=== PATIENT | female | born 1965 | race American Indian/Alaskan Native ===

== ENCOUNTER 2022-06-20 15:18 | Emergency (ER) | payer MEDICAID ==
[~2022-06-20] VITALS: Ht 162.6 cm; Wt 136.4 kg
[2022-06-20 16:10] VITALS: BP 161/85
[2022-06-20] MEDS ORDERED: ORPH100T2 PO (17:36)
[2022-06-20] MEDS ORDERED: IBUP-1984 PO (17:36)
[2022-06-20] MEDS ORDERED: METH4TAB3 PO (17:36)
[2022-06-20] MEDS ORDERED: dexamethasone sod phosphate 10mg/ml inj PO STA (17:54)
[2022-06-20] MEDS ORDERED: cyclobenzaprine 10mg tablet PO ONE (17:55)
== END 2022-06-20 18:17 | disposition home or self-care (01) ==
LOC: ER 15:21
DX: M25.552 Pain in left hip (principal); M19.90 Unspecified osteoarthritis, unspecified site; Z79.899 Other long term (current) drug therapy
CPT/HCPCS: 73502; 99283; J1100

== ENCOUNTER 2023-10-24 10:38 | Day surgery (SDC) | payer MEDICAID, OTHER ==
[2023-10-20 10:01] LABS: BASOPHILS % (AUTO) 0.6 % (0-1); EOSINOPHILS # (AUTO) 0.4 X10'3 (0-0.9); EOSINOPHILS % (AUTO) 4.3 % (0-6); HEMATOCRIT 38.6 % (35.0-45.0); HEMOGLOBIN 12.7 g/dl (12.0-16.0); LYMPHOCYTES # (AUTO) 1.8 X10'3 (1.1-4.8); LYMPHOCYTES % (AUTO) 21.4 % (21-51); MEAN CORPUSCULAR HEMOGLOBIN 26.9 PG (27.0-31.0); MEAN CORPUSCULAR HGB CONC 32.8 g/dL (33.0-36.5); MEAN CORPUSCULAR VOLUME 81.9 FL (78-98); MEAN PLATELET VOLUME 8.8 FL (7.4-10.4); MONOCYTES # (AUTO) 0.6 X10'3 (0-0.9); MONOCYTES % (AUTO) 7.1 % (2-12); NEUTROPHILS # (AUTO) 5.5 X10'3 (1.8-7.7); NEUTROPHILS % (AUTO) 66.6 % (42-75); PLATELET COUNT 343 X10'3 (140-440); RED BLOOD COUNT 4.72 X10'6 (4.20-5.60); RED CELL DISTRIBUTION WIDTH 16.4 % (11.5-14.5); WHITE BLOOD COUNT 8.2 X10'3 (4.5-11.0)
[2023-10-20 10:09] LABS: ALBUMIN 3.2 G/DL (3.4-5.0); ANION GAP 11 (8-16); BLOOD UREA NITROGEN 22 MG/DL (7-18); CALCIUM 10.1 MG/DL (8.5-10.1); CHLORIDE 101 MMOL/L (99-107); CREATININE 1.05 MG/DL (0.40-0.90); GLUCOSE 96 MG/DL (70-104); POTASSIUM 3.9 MMOL/L (3.5-5.1); SODIUM 140 MMOL/L (135-145); TOTAL CARBON DIOXIDE 28.1 MMOL/L (24-32); eGFR 54 ML/MIN
[2023-10-20 10:11] LABS: APTT 28 SECONDS (22-32); PROTHROMBIN TIME 10.9 SECONDS (9.0-12.0)
[~2023-10-24] VITALS: Ht 162.6 cm; Wt 116.3 kg
[2023-10-24] VITALS (14 sets, daily range): BP systolic 111–141; BP diastolic 47–97; PULSE 64–92; RESP 12–20; TEMP 98.2; O2SAT 93–98
[~2023-10-24 10:38] MED LIST: METH4TAB3 PO; ORPH100T4 PO
[2023-10-24 12:12] LABS: CHOL/HDL RATIO 3.6 (0.00-4.99); CHOLESTEROL 225 MG/DL (0-200); HDL CHOLESTEROL 62 MG/DL (35-60); LDL CHOLESTEROL 133 MG/DL (50-100); TRIGLYCERIDES 95 MG/DL (20-135)
[2023-10-24] MEDS ORDERED: ASCO500T20 (12:18)
[2023-10-24] MEDS ORDERED: DICL75TA5 PO (12:18)
[2023-10-24] MEDS ORDERED: DOCU-392 PO (12:18)
[2023-10-24] MEDS ORDERED: SEMA0.253 (12:18)
[2023-10-24] MEDS ORDERED: MECO10005 (12:18)
[2023-10-24] MEDS ORDERED: CHOL20003 (12:18)
[2023-10-24] MEDS ORDERED: CYCL-1 PO (12:18)
[2023-10-24] MEDS ORDERED: AMLO10TA13 (12:18)
[2023-10-24] MEDS ORDERED: FERR325T29 (12:18)
[2023-10-24] MEDS ORDERED: FLUO40CA (12:18)
[2023-10-24] MEDS ORDERED: HYDR25TA4 PO (12:18)
[2023-10-24] MEDS ORDERED: FLEC50TA3 (12:18)
[2023-10-24] MEDS ORDERED: LOSA50TA64 (12:18)
[2023-10-24] MEDS ORDERED: CETI10TA14 PO (12:18)
[2023-10-24] MEDS ORDERED: APIX5TAB3 (12:18)
[2023-10-24] MEDS ORDERED: OXYC1TAB17 PO (12:18)
[2023-10-24] MEDS ORDERED: SEMA0.5P (12:19)
[2023-10-24] MEDS: normal saline 1000ml 1,000 ML IV SCH (13:47)
[2023-10-24] MEDS: fentaNYL/PF 50MCG/1 ML 2ML syringe IV ONE (13:47)
[2023-10-24] MEDS: MIDAZolam 1mg/ml 10ml vial IV ONE (13:47)
== END 2023-10-24 15:15 | disposition home or self-care (01) ==
LOC: SSTAY O 10:38
PROVIDERS: ATTEND Student in an Organized Health Care Education/Training Program
DX: I48.91 Unspecified atrial fibrillation (principal); Z79.01 Long term (current) use of anticoagulants
CPT/HCPCS: 36415; 80048; 80061; 85025; 85610; 85730; 92960; 93005; J2250; J3010; J7030

== ENCOUNTER 2024-03-12 10:19 | Outpatient (CLI) | payer MEDICAID, OTHER ==
[~2024-03-12 10:19] MED LIST changes: +AMI200T PO; +AMLO10TA13; +APIX5TAB3; +ASCO500T20; +CETI10TA14 PO; +CHOL20003; +CYCL-1 PO; +DICL75TA5 PO; +DOCU-392 PO; +FERR325T29; +FLUO40CA; +HYDR25TA4 PO; +LOSA50TA64; +MECO10005; -METH4TAB3 PO; -ORPH100T4 PO; +OXYC1TAB17 PO; +SEMA0.5P
[2024-03-12 10:49] LABS: BASOPHILS % (AUTO) 0.6 % (0-1); EOSINOPHILS # (AUTO) 0.3 X10'3 (0-0.9); EOSINOPHILS % (AUTO) 3.9 % (0-6); HEMATOCRIT 35.5 % (35.0-45.0); HEMOGLOBIN 11.9 g/dl (12.0-16.0); LYMPHOCYTES # (AUTO) 1.1 X10'3 (1.1-4.8); LYMPHOCYTES % (AUTO) 17.2 % (21-51); MEAN CORPUSCULAR HEMOGLOBIN 29.2 PG (27.0-31.0); MEAN CORPUSCULAR HGB CONC 33.7 g/dL (33.0-36.5); MEAN CORPUSCULAR VOLUME 86.7 FL (78-98); MONOCYTES # (AUTO) 0.4 X10'3 (0-0.9); MONOCYTES % (AUTO) 6.8 % (2-12); NEUTROPHILS # (AUTO) 4.7 X10'3 (1.8-7.7); NEUTROPHILS % (AUTO) 71.5 % (42-75); PLATELET COUNT 293 X10'3 (140-440); RED BLOOD COUNT 4.09 X10'6 (4.20-5.60); RED CELL DISTRIBUTION WIDTH 14.1 % (11.5-14.5); WHITE BLOOD COUNT 6.6 X10'3 (4.5-11.0)
[2024-03-12 11:07] LABS: ALANINE AMINOTRANSFERASE 24 U/L (12-78); ALBUMIN 3.3 G/DL (3.4-5.0); ALBUMIN/GLOBULIN RATIO 0.7 (1.1-1.5); ALKALINE PHOSPHATASE 141 IU/L (46-116); ANION GAP 7 (8-16); ASPARTATE AMINO TRANSFERASE 18 U/L (10-37); BILIRUBIN,TOTAL 0.5 MG/DL (0.1-1.0); BLOOD UREA NITROGEN 22 MG/DL (7-18); C-REACTIVE PROTEIN 1.43 MG/DL (0.0-0.5); CALCIUM 9.6 MG/DL (8.5-10.1); CHLORIDE 102 MMOL/L (99-107); GLUCOSE 103 MG/DL (70-104); POTASSIUM 3.7 MMOL/L (3.5-5.1); SODIUM 139 MMOL/L (135-145); TOTAL CARBON DIOXIDE 29.7 MMOL/L (24-32); TOTAL PROTEIN 8.2 G/DL (6.4-8.2); eGFR 51 ML/MIN
[2024-03-12] MEDS ORDERED: iohexol 300mg/ml 100ml inj. ONE (11:14)
== END 2024-03-12 23:59 | disposition home or self-care (01) ==
LOC: RAD 10:19
PROVIDERS: ATTEND Nurse Practitioner Family
DX: S31.109A Unspecified open wound of abdominal wall, unspecified quadrant without penetration into peritoneal cavity, initial encounter (principal); N83.201 Unspecified ovarian cyst, right side; X58.XXXA Exposure to other specified factors, initial encounter; Y93.89 Activity, other specified; Y92.89 Other specified places as the place of occurrence of the external cause; Y99.8 Other external cause status
CPT/HCPCS: 36415; 74177; 80053; 85025; 85651; 86140; Q9967

== ENCOUNTER 2024-11-25 09:24 | Emergency (ER) | payer MEDICAID, OTHER ==
[~2024-11-25] VITALS: Ht 162.6 cm; Wt 111.4 kg
[~2024-11-25 09:24] MED LIST changes: -AMI200T PO; +AMIO200T76 PO
[2024-11-25 09:58] VITALS: TEMP 98.6
[2024-11-25 10:27] LABS: MEAN PLATELET VOLUME 8.6 FL (7.4-10.4); RED CELL DISTRIBUTION WIDTH 13.7 % (11.5-14.5)
[2024-11-25 10:36] LABS: CREATININE 0.96 MG/DL (0.40-0.90); TOTAL CARBON DIOXIDE 29.4 MMOL/L (24-32); eCRCL 56 ML/MIN; eGFR 60 ML/MIN
--- NOTE | 2024-11-25 10:52 | Physician Documentation ---
History of Present Illness ~ Chief Complaint: Wound Stated Complaint: WOUND Time Seen by MD: 10:45 Primary Medical Doctor: JOSÉ ANTONIO MORGAN Source: patient Mode of Arrival: POV Exam Limitations: no limitations HPI Chief Complaint: Referred here by wound care for a draining wound Caveat: None Independent Historians: None History of Present Illness: Review of systems: All systems were reviewed and are negative except for what is indicated in the history of present illness. Past Medical History: Past Surgical History: Social History: Medications: Reviewed as documented Nursing Notes Allergies: Reviewed as documented in Nursing Notes Tetanus within 5 years?: No Medication Reconciliation Allergies: Coded Allergies: No Known Allergies (Unverified , 11/25/24) Scheduled Amiodarone Hcl (Cordarone), 1 TAB PO DAILY, (Reported) Amlodipine Besylate (Amlodipine Besylate), 1 TAB DAILY, (Reported) Apixaban (Eliquis), 1 TAB BID, (Reported) Cetirizine HCl (Cetirizine HCl), 1 TAB PO DAILY, (Reported) Cholecalciferol (Vitamin D3) (Vitamin D3), 1 TAB DAILY, (Reported) Diclofenac Sodium (Diclofenac Sodium), 1 TAB PO BID, (Reported) Hydrochlorothiazide (Hydrochlorothiazide), 1 TAB PO DAILY, (Reported) Losartan Potassium (Losartan Potassium), 1 TAB DAILY, (Reported) Scheduled PRN Cyclobenzaprine* (Cyclobenzaprine*), 1 TAB PO TID PRN for muscle spasm, (Reported) Docusate Sodium (Docusate Sodium), 1 CAP PO BID PRN for constipation, (Reported) Oxycodone Hcl/Acetaminophen (Oxycodone-Acetaminophen 10-325), 1 TAB PO BID PRN for pain, (Reported) Miscellaneous Medications Ascorbic Acid (Vitamin C), (Reported) Ferrous Sulfate (Ferrous Sulfate), (Reported) Fluoxetine Hcl (Fluoxetine Hcl), (Reported) Mecobalamin (B12 Active), (Reported) Semaglutide (Wegovy), (Reported) Review of Systems All Other Systems at this time: Reviewed and Negative ROS Patient denies any other acute symptoms other than above. All other systems are negative Physical Exam Vital Signs: RN Vital Signs have been reviewed: Yes, Temperature: 98.6, Source: Oral, Heart Rate: 71, Respiratory Rate: 16, BP: 132/54, Pulse Oximetry: 99, Weight: 111.360 Oxygen Flow Rate: 0 Pulse Oximetry Reflects: adequate oxygenation Physical Exam General Appearance: No distress, morbidly obese HEENT: Normal OP, moist oral mucosa, PERRL, EOMI Neck: supple, normal ROM, trachea midline Pulmonary: No respiratory distress, CTA, BS equal Cardiac: RRR, no murmur, rub or gallop, GI: nondistended, soft, nontender, normal bowel sounds, no guarding, no rebound Abdominal wall: Patient has a wound underneath a right lateral lower abdominal wall pannus. There is packing in a draining wound. Extremities: normal ROM, no swelling, non-tender Skin: intact, dry, warm, no rashes Neuro: AAOx3, speech is clear, no focal motor weakness Psych: normal affect, good eye contact, no apparent hallucination, normal speech Progress Results/Orders Results/Orders Completed Orders - NICK OWEN MD Iohexol 300mg/Ml 100ml Inj. (Omnipaque-3 (11/25/24 10:56) Oxycodone/Acetaminophen Tablet (Percocet (11/25/24 12:40) Vital Signs 11/25/24 11/25/24 11/25/24 11/25/24 09:44 09:58 10:08 11:00 Temp 97.6 98.6 Pulse 77 71 69 Resp 18 14 16 14 B/P (MAP) 134/92 132/54 (80) 138/81 (100) Pulse Ox 99 99 99 O2 Flow Rate 0 0 0 11/25/24 12:37 Pulse 66 Resp 18 B/P (MAP) 125/73 (90) Pulse Ox 98 Laboratory Tests Test 11/25/24 10:00 White Blood Count 8.7 Red Blood Count 4.48 Hemoglobin 12.7 Hematocrit 37.6 Mean Corpuscular Volume 83.9 Mean Corpuscular Hemoglobin 28.2 Mean Corpuscular Hemoglobin Concent 33.7 Red Cell Distribution Width 13.7 Platelet Count 294 Mean Platelet Volume 8.6 Neutrophils (%) (Auto) 75.3 H Lymphocytes (%) (Auto) 15.3 L Monocytes (%) (Auto) 5.5 Eosinophils (%) (Auto) 3.3 Basophils (%) (Auto) 0.6 Neutrophils # (Auto) 6.5 Lymphocytes # (Auto) 1.3 Monocytes # (Auto) 0.5 Eosinophils # (Auto) 0.3 Basophils # (Auto) 0.0 CBC Comment Sodium Level 139 Potassium Level 3.3 L Chloride Level 100 Carbon Dioxide Level 29.4 Anion Gap 10 Blood Urea Nitrogen 21 H Creatinine 0.96 H Estimated GFR/1.73 m2 60 BUN/Creatinine Ratio 21.9 H Glucose Level 124 H Calcium Level 9.6 Albumin 3.3 L Chemistry Comments Medical Decision Making Additional info obtained from: old records Findings Differential diagnosis includes but is not limited to: Abscess, infected wound CT abdomen and pelvis with IV contrast, indication: Draining abdominal wall wound Impression: 1. No significant interval change in appearance of 5.4 cm deep soft tissue fluid collection containing gas in the lateral right lower abdominal wall which could reflect abscess. No evidence of new fluid collection. 2. Stable 3.6 cm right adnexal cyst. 3. Worsening left hip osteoarthritis with increased cortical thinning of the acetabulum since the prior CT from This could reflect progression of osteoarthritis however correlation with clinical symptoms and MRI of the hip suggested. Laboratory data independent interpretation: CBC: Normal BMP: Potassium just below normal 3.3, BUN and creatinine just above normal 21 and 0.96 respectively. Serum glucose very mildly elevated at 124. Emergency department course/medical decision-making: Patient presents with a chronic draining wound to the right lower abdominal wall. CT scan shows no significant changes. Patient is afebrile and hemodynamically stable. Patient does not require admission. Consultation/communications: Departure Time of Disposition: 12:49 Disposition: 01 HOME / SELF CARE / HOMELESS Impression: Primary Impression: Right abdominal wall wound Condition: Stable Discharge Instructions: Wound Care, Adult Additional Instructions: FOLLOW UP WITH THE WOUND CARE CLINIC FOR ONGOING CARE Referrals: NO PRIMARY CARE PROVIDER (PCP) Education Educated: Patient, Family Educated regarding: diagnosis, treatment Signature Scribe Signature: . Attestation: . NICK OWEN MD Nov 25, 2024 10:52
[2024-11-25] MEDS ORDERED: iohexol 300mg/ml 100ml inj. ONE (10:56)
--- NOTE | 2024-11-25 12:25 | RADIOLOGY REPORT ---
Exam: CT CT ABDOMEN PELVIS W/ IV CONTRAST History: Concern for abscess of chronic wound Comparison Study: CT CT ABDOMEN PELVIS on DOS: 03/12/24 Contrast: Type of contrast: Omnipaque 300 Contrast injected: 100 mL Contrast wasted: 0 TECHNIQUE: CT scan of the abdomen pelvis was performed with intravenous contrast. Coronal sagittal r eformatted images are submitted. Radiation Dose Information: CT Dose: CTDI volume is 36.9 mGy. Dose-length product is 1995.3 mGy*cm FINDINGS: Lung Bases: No acute or significant lung base finding. Normal heart size. No pleural or pericardial effusion. Liver: The liver is normal in size. No focal lesions. Normal hepatic vascular enhancement. Gallbladder and Biliary Tree: The gallbladder is unremarkable. No biliary ductal dilatation. Spleen: Unremarkable Pancreas: The pancreas is normal in appearance without focal lesions or abnormal enhancement. Adrenal Glands: Unremarkable Kidneys: Kidneys demonstrate normal symmetric enhancement without focal lesions, calculi or hydroneph rosis. Urinary bladder: Unremarkable. Bowel: The stomach is grossly normal in appearance. Small bowel and colon are normal in caliber and d istribution. The appendix is not visualized; however, no secondary findings of acute appendicitis id entified. Peritoneum: No pneumoperitoneum. No ascites. Lymphadenopathy: No mesenteric, retroperitoneal or periportal lymphadenopathy. Abdominal Wall: There is a 5.4 x 2.5 cm irregular collection with thickened [place] , containing air an d fluid in the deep subcutaneous tissues in the lateral aspect of the right lower quadrant. This appe arance is similar to the prior CT from 03/12/2024. No new fluid collection. Vasculature: The visualized abdominal aorta is normal in size and caliber. Abdominal and pelvic vess els demonstrate normal enhancement. Pelvic Organs: There is a 3.6 cm right adnexal cyst which is similar to prior study. Uterus and left adnexa are unremarkable. Musculoskeletal: There is severe left hip joint space narrowing and deformity of the left femoral hea d with flattening and subchondral cystic change. There is increased cortical thinning of the left jackson tabulum since the prior CT. There is left hip soft tissue thickening. IMPRESSION: 1. No significant interval change in appearance of 5.4 cm deep soft tissue fluid collection containin g gas in the lateral right lower abdominal wall which could reflect abscess. No evidence of new fluid collection. 2. Stable 3.6 cm right adnexal cyst. 3. Worsening left hip osteoarthritis with increased cortical thinning of the acetabulum since the kaylene or CT from This could reflect progression of osteoarthritis however correlation with clinica l symptoms and MRI of the hip suggested. All CT scans at this medical facility are performed using dose modulation techniques as appropriate t o a performed exam including the following: Automated exposure control was utilized; adjustment of th e MA and/or KV according to patient size; and use of iterative reconstruction technique.
[2024-11-25 13:06] VITALS: BP 129/75; PULSE 73; RESP 18; O2SAT 96
== END 2024-11-25 13:09 | disposition home or self-care (01) ==
LOC: ER 09:24
DX: S30.92XA Unspecified superficial injury of abdominal wall, initial encounter (principal); Z79.899 Other long term (current) drug therapy; X58.XXXA Exposure to other specified factors, initial encounter; Y93.89 Activity, other specified; Y92.89 Other specified places as the place of occurrence of the external cause; Y99.8 Other external cause status
CPT/HCPCS: 36415; 74177; 80048; 85025; 87070; 87075; 99285; Q9967; 87077; 87186